=== PATIENT | male | born 1945 | race Caucasian/White ===

== ENCOUNTER 2022-04-18 06:13 | Day surgery (SDC) | payer MEDICARE, BC, SELFPAY ==
[2022-04-18] VITALS (12 sets, daily range): BP systolic 133–152; BP diastolic 80–98; PULSE 75–95; RESP 16; TEMP 36.3–37.1; O2SAT 92–95; BMI 29.1
[2022-04-18] MEDS: LACTATED RINGERS 1000 ML 1,000 ML 100 ML IV (06:40)
[2022-04-18] MEDS: SODIUM CHLORIDE 0.9 % (FLUSH) 10 ML SYRINGE IVF (06:40)
[2022-04-18] MEDS: CEFAZOLIN 2 GM INJ IVP (07:54)
[2022-04-18] MEDS: BUPIVACAINE 0.25% 30 ML INJECTION (08:14)
--- NOTE | 2022-04-18 10:14 | PM.GSPRC ---
Operative Note Date of procedure: 04/18/22 Type of Procedure: Laparoscopic left inguinal hernia repair with placement of mesh Procedure Description: After discussing the risks and benefits of the procedure, the patient signed informed consent.? The operative site was marked and the patient was brought to the operating room and placed on the operating table in supine position.? Care was taken to pad the patient's pressure points.?? The patient was then intubated by anesthesia.?? The operative site was then prepped and draped in the usual sterile fashion.? A time-out was then performed. A curvilinear incision was made below the umbilicus. Dissection was carried down to subcutaneous tissue until the anterior rectus fascia was encountered. This was incised off the midline. The rectus muscles were then retracted exposing the posterior fascia. A space maker port with a dissecting balloon was then introduced. The preperitoneal space was inflated under direct vision. The balloon was then removed and the preperitoneal space insufflated. A 10 mm 0 degree scope was then advanced and the area was surveyed for bleeding. The inferior epigastrics were down in the operative field and there was some bleeding present. 5 mm clips were applied and the epigastrics transected. Suction was used to irrigate and remove the blood from the dissection plane. Dissection began on the left side. Izaiah's ligament and the pubic bone was exposed medially. Following this dissection was carried out laterally. A direct and large indirect defect was noted. The sac was difficult to dissect free from the cord structures secondary to scar tissue. Using blunt dissection this was able to be reduced. A large cord lipoma was also removed from the inguinal canal.. Once the sac was completely reduced, the cord structures were dissected circumfrentially and a piece of Parietex mesh for the appropriate side was placed into the abdomen. This was positioned around the cord structures. A Tacker was used to attach the mesh medially at Izaiah's ligament. A single tack was used to attach the mesh medially. Once this was completed the sac was placed on top of the mesh and the preperitoneal space desufflated under direct vision. The ports were removed. The fascia from the infraumbilical port was closed with 0 Vicryl. The skin incisions were closed with absorbable subcuticular suture. Sterile dressings were then applied. The scrotum was examined to ensure that both testicles were down. Instrument sponge and needle counts were correct at the end of the case. ? Findings: Large indirect and small direct defect, left side. Anesthesia: GETA Surgeon: Taniya Cullen MD Estimated blood loss (mL): 15 Condition: stable Disposition: PACU
--- NOTE | 2022-04-18 10:23 | W.ANESCHARGE ---
Anesthesia Charges Start Date/Time Anesthesia Start Date: 04/18/22 Anesthesia Start Time: 07:42 Stop Date/Time Anesthesia Stop Date: 04/18/22 Anesthesia Stop Time: 10:21 Summary Emergency: No Extremes of Age: Over 69-CPT 12815
--- NOTE | 2022-04-18 10:53 | W.ANESCHARGE ---
Anesthesia Charges Start Date/Time Anesthesia Start Date: 04/18/22 Anesthesia Start Time: 07:42 Stop Date/Time Anesthesia Stop Date: 04/18/22 Anesthesia Stop Time: 10:21 Summary Emergency: No Extremes of Age: Over 69-CPT 33324
[2022-04-18] MEDS: TRAMADOL HCL 50 MG TABLET PO (11:11)
== END 2022-04-18 12:00 | disposition home or self-care (01) ==
PROVIDERS: PCP Surgery; Visit Provider Surgery
PROC: (CPT 49650; principal; 2022-04-18 07:30)
DX: K40.90 Unilateral inguinal hernia, without obstruction or gangrene, not specified as recurrent (principal)
CPT/HCPCS: 49650; 00830; 00860; 99100; A9270; C1781; J0330; J0690; J1100; J2405; J2704; J3010; J3490; J7120

== ENCOUNTER 2025-02-17 16:34 | Outpatient (CLI) | payer MEDICARE, BC, SELFPAY ==
--- NOTE | 2025-02-17 16:45 | CRLHL7_ITS ---
For Patients: As a result of the Century Cures Act, medical imaging exams and procedure reports are released immediately into your electronic medical record. You may view this report before your referring provider. If you have questions, please contact your health care provider. Indication: Open bite of unspecified upper arm Technique: Grayscale and color Doppler ultrasound of the right dorsal distal forearm performed in the area of concern. Spectral Doppler evaluation also performed. Comparison: None Findings: Soft tissue injury is present with subcutaneous edema and overlying skin defect. At least partial thrombus of the underlying cephalic vein is suspected. No drainable abscess. Impression: At least partial thrombus of the underlying cephalic vein. Adjacent skin defect with subcutaneous edema. No drainable abscess. Dictated by Roque Callahan MD @ 02/18/2025 6:45:13 AM (Electronically Signed)
== END 2025-02-17 16:35 | disposition home or self-care (01) ==
LOC: US 16:35
PROVIDERS: PCP Family Medicine
DX: L03.113 Cellulitis of right upper limb (principal); S41.159A Open bite of unspecified upper arm, initial encounter
CPT/HCPCS: 76882; 87070

== ENCOUNTER 2025-02-25 09:19 | Outpatient (CLI) | payer MEDICARE, BC, SELFPAY | END 2025-02-25 09:20 | disposition home or self-care (01) | LOC: WOUND 09:19 | PROVIDERS: PCP Family Medicine; Visit Provider Nurse Practitioner Family | DX: S51.851A Open bite of right forearm, initial encounter (principal); L08.9 Local infection of the skin and subcutaneous tissue, unspecified; W54.0XXA Bitten by dog, initial encounter | CPT/HCPCS: 97597; G0463 ==

== ENCOUNTER 2025-03-03 09:31 | Outpatient (CLI) | payer MEDICARE, BC, SELFPAY | END 2025-03-03 09:32 | disposition home or self-care (01) | LOC: WOUND 09:32 | PROVIDERS: PCP Family Medicine; Visit Provider Nurse Practitioner Family | DX: S51.851A Open bite of right forearm, initial encounter (principal); W54.0XXA Bitten by dog, initial encounter | CPT/HCPCS: G0463 ==